=== PATIENT | male | born 1980 | race Two or more races ===

== ENCOUNTER 2022-10-19 12:59 | Emergency (ER) | payer MEDICARE, MEDICAID, SELFPAY ==
[2022-10-19 13:07] VITALS: BP 150/87; PULSE 70; RESP 22; TEMP 36.7; O2SAT 100; BMI 27.8
[2022-10-19 13:23] LABS: MANUAL DIFF FLAG NO
[2022-10-19 13:24] LABS: Basophils Absolute Auto 0.1 X10*3/uL (0.0-0.2); Basophils Percent Auto 0.6 % (0-2); Eosinophils Percent Auto 0.4 % (0-4); Hematocrit 36.9 % (42.0-52.0); Hemoglobin 12.5 g/dl (14.0-18.0); Imm Gran Abs Auto 0.02 X10*3/uL (0.00-0.03); Imm Gran Pct Auto 0.3 % (0.0-0.4); Lymphocytes Absolute Auto 1.3 X10*3/uL (1.2-4.9); Lymphocytes Percent Auto 16.9 % (20-40); Mean Corpuscular HGB Conc 33.9 g/dl (31.0-36.0); Mean Corpuscular Hemoglobin 29.9 pg (27.0-33.0); Mean Corpuscular Volume 88.3 fL (80.0-98.0); Mean Platelet Volume 9.7 fL (9.4-12.4); Monocytes Absolute Auto 0.3 X10*3/uL (0.1-1.2); Monocytes Percent Auto 4.2 % (2-11); Neutrophils Absolute Auto 6.2 x10*3/uL (2.0-8.3); Neutrophils Percent Auto 77.6 % (45-73); Platelet Count 290 X10*3/uL (160-400); Red Blood Count 4.18 X10*6/uL (4.60-5.80); Red Cell Distribution Width 13.2 % (11.0-16.0); White Blood Count 7.9 X10*3/uL (4.8-10.8)
[2022-10-19 14:00] LABS: COVID-19 Test Negative (Negative); IDNOW Serial# 16C4AD1C
--- NOTE | 2022-10-19 14:07 | ED.ABDPAIN ---
HPI - Abdominal Pain General Chief Complaint: Abdominal Pain Stated Complaint: vomiting abd pain Time Seen by Provider: 10/19/22 13:28 Source: patient Mode of arrival: ambulatory Limitations: no limitations History of Present Illness HPI narrative: this is a 41-year-old male past medical history significant for hypertension, diabetes, hyperlipidemia, neuropathy presenting to the emergency department with complaints of diffuse abdominal pain with nausea and vomiting since this morning. Patient reports that he has a history of pancreatitis and this feels similar. He tells me he has never drink alcohol, not a drinker. Denies drug use. Patient tells me he recently had an admission for pancreatitis about 2 weeks ago at his local hospital back home in [place]. Patient also has vague complaints of chest pain, intermittent in nature. Substernal dull. Denies shortness of breath, fevers, chills, flank pain, urinary changes, headache, vision changes and weakness. Tells me has not been able to tolerate anything by mouth since this morning. Related Data Allergies Allergy/AdvReac Type Severity Reaction Status Date / Time No Known Allergies Allergy Verified 10/19/22 13:07 Review of Systems Review of Systems Constitutional : No Weight loss, No Fever, No Chills, No Fatigue, No Malaise ENT/Mouth : No sore throat, No Rhinorrhea Eyes: No Eye Pain, No Swelling, No Redness Cardiovascular : No Chest Pain, No SOB, No Dyspnea on Exertion, No Orthopnea, No Edema, No Palpitations Respiratory : No Cough, No Sputum, No Wheezing Gastrointestinal : + Nausea, + Vomiting, No Diarrhea, No Constipation, + abdominal Pain, No Hematochezia, No Melena Genitourinary : No Dysuria, No Urinary Frequency, No Hematuria, Musculoskeletal : No joint pain, No Myalgias, No Joint Swelling Skin : No Skin Lesions, No rash Neuro : No Weakness, No Numbness, No Dizziness, No Headache Psych : No Anxiety/Panic, No Depression All other systems reviewed and are negative Yes all other systems are reviewed and are negative [facility] Past Medical History Attestation statement: The following information was validated with the patient. Source: old records reviewed and nursing notes reviewed Social History Social History Advance Directives: No Advance Directives Information Provided: No Physical Exam ED Vital Signs: Vital Signs - 24 hr 10/19/22 13:07 10/19/22 19:27 10/19/22 20:10 Temperature 98.0 F 99.5 F 99.2 F Pulse Rate 70 60 59 Respiratory Rate 22 H 22 H Blood Pressure 150/87 H 178/93 H 177/102 H Pulse Oximetry 100 99 98 Oxygen Delivery Method Room Air Room Air Room Air BMI result Body Mass Index 27.8 vss Appearance: Alert.? Oriented X3.? No acute distress.? Head: Normocephalic, atraumatic, no step-offs or deformities Eyes: Pupils equal, round and reactive to light.? ENT: Pharynx normal.? Neck: Normal inspection.? Neck supple.? CVS: Normal heart rate and rhythm.? Pulses normal.? Respiratory: No respiratory distress.? Breath sounds normal.? Abdomen: Soft and Diffusely tender abdomen , however no point tenderness with present bowel sounds throughout? Skin: Skin warm and dry.? Normal skin color.? Normal skin turgor.? Extremities: No lower extremity edema.? No calf ttp. 5/5 strength to bilateral upper and lower extremities Neuro: Oriented X 3.? No motor deficit.? No sensory deficit. CN 2-12 intact Course Reevaluation(s) Reevaluation #1: CBC within normal limits. chemistry with no acute finding requiring intervention. No anion gap, or electrolyte abnormalities, therefore low suspicion for DKA. Patient has no history of DKA. troponin slightly elevated 29.8 EKG nonischemic, patient not reporting chest pain therefore low suspicion for ACS. Second troponin pending Lipase 82. UA clean. Ethanol negative. COVID & Flu negative. I will add a drug of abuse screening patient with bizarre affect, throwing things in the room, yelling that he is in pain and needs something now, demanding pain medicine . Tells me still extremely nauseous and vomiting into the bag. Time: 14:30 Reevaluation #2: Patient positive for marijuana and cocaine, this may be cyclic vomiting. CT of the abdomen and pelvis with focal airspace opacities at lung base is, patient without upper respiratory symptoms low suspicion for pneumonia or pulmonary etiology. No CT evidence of any acute intra-abdominal and or intrapelvic pathology is. No evidence of acute pancreatitis. Pending repeat trop. I suspect that patient will be discharged home. He is resting comfortably sleeping with stable vitals. Time: 19:37 Reevaluation #3: Repeat trop not meeting delta criteria. Patient w/o chest pain. Patient's last blood pressure in accurate was taken when patient was vomiting. Another blood pressure will be obtained prior to discharge. At time of discharge patient not having nausea or vomiting, tolerating p.o. fluids. Educated patient on diagnosis and treatment plan, answered all question, patient verbalizes understanding. At this time patient will be discharged home, advised to return with new or worsening symptoms. Educated on worrisome signs and symptoms and when to return. At this time I feel comfortable discharge home. Time: 20:24 Medical Decision Making Medical Decision Making [facility] Narrative: 1350 41-year-old male presents with abdominal pain, chest pain, nausea & vomiting X1 day. Hx of pancreatitis Physical exam significant for diffusely tender abdomen with present bowel sounds throughout. Concerns for pancreatitis. Will rule out other intra-abdominal etiologies. Will also rule out electrolyte abnormalities, dehydration. Unlikley ACS and PE based off story. Patient PERC negative. Plan at this time laboratory studies, imaging. Lab Data Result Diagrams: 10/19/22 13:17 10/19/22 13:17 Labs: Lab Results 10/19/22 10/19/22 10/19/22 Range/Units 13:17 13:17 13:22 WBC 7.9 (4.8-10.8) X10*3/uL RBC 4.18 L (4.60-5.80) X10*6/uL Hgb 12.5 L (14.0-18.0) g/dl Hct 36.9 L (42.0-52.0) % MCV 88.3 (80.0-98.0) fL MCH 29.9 (27.0-33.0) pg MCHC 33.9 (31.0-36.0) g/dl RDW 13.2 (11.0-16.0) % Plt Count 290 (160-400) X10*3/uL MPV 9.7 (9.4-12.4) fL Immature Gran % (Auto) 0.3 (0.0-0.4) % Neut % (Auto) 77.6 H (45-73) % Lymph % (Auto) 16.9 L (20-40) % Pierce % (Auto) 4.2 (2-11) % Eos % (Auto) 0.4 (0-4) % Baso % (Auto) 0.6 (0-2) % Lymph # (Auto) 1.3 (1.2-4.9) X10*3/uL Pierce # (Auto) 0.3 (0.1-1.2) X10*3/uL Eos # (Auto) 0.0 (0.0-0.4) X10*3/uL Baso # (Auto) 0.1 (0.0-0.2) X10*3/uL Abs Immat Gran (auto) 0.02 (0.00-0.03) X10*3/uL Absolute Neuts (auto) 6.2 (2.0-8.3) x10*3/uL Absolute Nucleated RBC 0.000 (0.0-0.012) X10*3/uL Nucleated RBC % (auto) 0.0 (0.0-0.2) /100WBC Sodium 139 (135-145) mmol/L Potassium 4.4 (3.3-5.1) mmol/L Chloride 108 (96-108) mmol/L Carbon Dioxide 23 (22-29) mmol/L Anion Gap 12 (12-20) BUN 11 (9-16) mg/dL Creatinine 1.10 (0.5-1.4) mg/dL Estim Creat Clear Calc 108.5 Estimated GFR > 60 Random Glucose 185 H (60-115) mg/dL Calcium 10.1 (8.4-10.2) mg/dL Total Bilirubin 0.4 (0.0-1.0) mg/dL Direct Bilirubin 0.2 (0.0-0.5) mg/dL AST 20 (5-37) U/L ALT 20 (0-40) U/L Alkaline Phosphatase 84 (39-117) U/L Troponin I High Sens 29.8 (<3.5-35.0) ng/L Total Protein 7.2 (6.5-8.0) g/dL Albumin 4.4 (3.5-5.0) g/dL Triglycerides 97 mg/dL Lipase 82 H (8-78) U/L Urine Color Urine Appearance Urine pH (5.0-9.0) Ur Specific [place] (1.005-1.025) Urine Protein (Neg-Trace) mg/dL Urine Glucose (UA) (Negative) mg/dL Urine Ketones (Negative) mg/dL Urine Blood (Negative) Urine Nitrite (Negative) Ur Leukocyte Esterase (Negative) Urine Opiates Screen (Not Detect) Urine Fentanyl Screen (Not Detect) Ur Barbiturates Screen (Not Detect) Ur Phencyclidine Scrn (Not Detect) Ur Amphetamines Screen (Not Detect) U Benzodiazepines Scrn (Not Detect) Urine Cocaine Screen (Not Detect) U Marijuana (THC) Screen (Not Detect) Ethyl Alcohol < 10 mg/dL COVID-19 (SANDI) (Negative) COVID-19 Clin Com Influenza Type A (DESTINEE) (Negative) Influenza Type B (DESTINEE) (Negative) Influenza A & B Note 10/19/22 10/19/22 10/19/22 Range/Units 13:43 14:16 14:16 WBC (4.8-10.8) X10*3/uL RBC (4.60-5.80) X10*6/uL Hgb (14.0-18.0) g/dl Hct (42.0-52.0) % MCV (80.0-98.0) fL MCH (27.0-33.0) pg MCHC (31.0-36.0) g/dl RDW (11.0-16.0) % Plt Count (160-400) X10*3/uL MPV (9.4-12.4) fL Immature Gran % (Auto) (0.0-0.4) % Neut % (Auto) (45-73) % Lymph % (Auto) (20-40) % Pierce % (Auto) (2-11) % Eos % (Auto) (0-4) % Baso % (Auto) (0-2) % Lymph # (Auto) (1.2-4.9) X10*3/uL Pierce # (Auto) (0.1-1.2) X10*3/uL Eos # (Auto) (0.0-0.4) X10*3/uL Baso # (Auto) (0.0-0.2) X10*3/uL Abs Immat Gran (auto) (0.00-0.03) X10*3/uL Absolute Neuts (auto) (2.0-8.3) x10*3/uL Absolute Nucleated RBC (0.0-0.012) X10*3/uL Nucleated RBC % (auto) (0.0-0.2) /100WBC Sodium (135-145) mmol/L Potassium (3.3-5.1) mmol/L Chloride (96-108) mmol/L Carbon Dioxide (22-29) mmol/L Anion Gap (12-20) BUN (9-16) mg/dL Creatinine (0.5-1.4) mg/dL Estim Creat Clear Calc Estimated GFR Random Glucose (60-115) mg/dL Calcium (8.4-10.2) mg/dL Total Bilirubin (0.0-1.0) mg/dL Direct Bilirubin (0.0-0.5) mg/dL AST (5-37) U/L ALT (0-40) U/L Alkaline Phosphatase (39-117) U/L Troponin I High Sens (<3.5-35.0) ng/L Total Protein (6.5-8.0) g/dL Albumin (3.5-5.0) g/dL Triglycerides mg/dL Lipase (8-78) U/L Urine Color Yellow Urine Appearance Clear Urine pH 8.0 (5.0-9.0) Ur Specific [place] 1.020 (1.005-1.025) Urine Protein Negative (Neg-Trace) mg/dL Urine Glucose (UA) 100 H (Negative) mg/dL Urine Ketones Trace (Negative) mg/dL Urine Blood Negative (Negative) Urine Nitrite Negative (Negative) Ur Leukocyte Esterase Negative (Negative) Urine Opiates Screen Not Detected (Not Detect) Urine Fentanyl Screen Not Detected (Not Detect) Ur Barbiturates Screen Not Detected (Not Detect) Ur Phencyclidine Scrn Not Detected (Not Detect) Ur Amphetamines Screen Not Detected (Not Detect) U Benzodiazepines Scrn Not Detected (Not Detect) Urine Cocaine Screen POSITIVE H (Not Detect) U Marijuana (THC) Screen POSITIVE H (Not Detect) Ethyl Alcohol mg/dL COVID-19 (SANDI) Negative (Negative) COVID-19 Clin Com See Note Influenza Type A (DESTINEE) (Negative) Influenza Type B (DESTINEE) (Negative) Influenza A & B Note 10/19/22 10/19/22 Range/Units 16:21 19:42 WBC (4.8-10.8) X10*3/uL RBC (4.60-5.80) X10*6/uL Hgb (14.0-18.0) g/dl Hct (42.0-52.0) % MCV (80.0-98.0) fL MCH (27.0-33.0) pg MCHC (31.0-36.0) g/dl RDW (11.0-16.0) % Plt Count (160-400) X10*3/uL MPV (9.4-12.4) fL Immature Gran % (Auto) (0.0-0.4) % Neut % (Auto) (45-73) % Lymph % (Auto) (20-40) % Pierce % (Auto) (2-11) % Eos % (Auto) (0-4) % Baso % (Auto) (0-2) % Lymph # (Auto) (1.2-4.9) X10*3/uL Pierce # (Auto) (0.1-1.2) X10*3/uL Eos # (Auto) (0.0-0.4) X10*3/uL Baso # (Auto) (0.0-0.2) X10*3/uL Abs Immat Gran (auto) (0.00-0.03) X10*3/uL Absolute Neuts (auto) (2.0-8.3) x10*3/uL Absolute Nucleated RBC (0.0-0.012) X10*3/uL Nucleated RBC % (auto) (0.0-0.2) /100WBC Sodium (135-145) mmol/L Potassium (3.3-5.1) mmol/L Chloride (96-108) mmol/L Carbon Dioxide (22-29) mmol/L Anion Gap (12-20) BUN (9-16) mg/dL Creatinine (0.5-1.4) mg/dL Estim Creat Clear Calc Estimated GFR Random Glucose (60-115) mg/dL Calcium (8.4-10.2) mg/dL Total Bilirubin (0.0-1.0) mg/dL Direct Bilirubin (0.0-0.5) mg/dL AST (5-37) U/L ALT (0-40) U/L Alkaline Phosphatase (39-117) U/L Troponin I High Sens 34.5 (<3.5-35.0) ng/L Total Protein (6.5-8.0) g/dL Albumin (3.5-5.0) g/dL Triglycerides mg/dL Lipase (8-78) U/L Urine Color Urine Appearance Urine pH (5.0-9.0) Ur Specific [place] (1.005-1.025) Urine Protein (Neg-Trace) mg/dL Urine Glucose (UA) (Negative) mg/dL Urine Ketones (Negative) mg/dL Urine Blood (Negative) Urine Nitrite (Negative) Ur Leukocyte Esterase (Negative) Urine Opiates Screen (Not Detect) Urine Fentanyl Screen (Not Detect) Ur Barbiturates Screen (Not Detect) Ur Phencyclidine Scrn (Not Detect) Ur Amphetamines Screen (Not Detect) U Benzodiazepines Scrn (Not Detect) Urine Cocaine Screen (Not Detect) U Marijuana (THC) Screen (Not Detect) Ethyl Alcohol mg/dL COVID-19 (SANDI) (Negative) COVID-19 Clin Com Influenza Type A (DESTINEE) Negative (Negative) Influenza Type B (DESTINEE) Negative (Negative) Influenza A & B Note See Note Medications Administered Discontinued Medications Generic Name Dose Route Start Last Admin Trade Name Freq PRN Reason Stop Dose Admin Al Hydroxide/Mg Hydroxide 30 ml 10/19/22 18:07 10/19/22 18:56 Magnesium Hydrox/Alum Hydrox 30 Ml Oral.Susp PO 10/19/22 18:08 30 ml ONCE ONE Administration Belladonna Alkaloids/Phenobarbital 10 ml 10/19/22 18:07 10/19/22 18:57 Phenobarb/Hyoscy/Atropine/Scop 10 Ml Elixir PO 10/19/22 18:08 10 ml ONCE ONE Administration Sodium Chloride 1,000 mls @ 999 mls/hr 10/19/22 14:30 10/19/22 16:48 Ns IV 10/19/22 15:30 Infused .Q1H1M LUIS Infusion Iohexol 100 ml 10/19/22 15:10 10/19/22 15:11 Iohexol 350 Mg/Ml 100 Ml Infus..Btl IV 10/19/22 15:11 85 ml ONCE ONE Administration Morphine Sulfate 4 mg 10/19/22 15:54 10/19/22 16:48 Morphine Sulfate 4 Mg/Ml Cartridge IVPUSH 10/19/22 15:55 4 mg ONCE ONE Administration Protocol Morphine Sulfate 4 mg 10/19/22 18:49 10/19/22 18:57 Morphine Sulfate 4 Mg/Ml Cartridge IVPUSH 10/19/22 18:50 4 mg ONCE ONE Administration Protocol Critical Care Time Critical Care Time Critical Care Time: No Discharge Plan Discharge Clinical Impression: Abdominal pain, Nausea & vomiting, Chest pain not due to acute coronary syndrome Patient Disposition: Home, Self-Care Instructions: Acute Nausea and Vomiting (ED), Abdominal Pain (ED) Additional Instructions: Take your medications as prescribed. If you were prescribed antibiotics today, it is important that you take your medication to their entirety, do not skip any doses, do not finish them early. Follow-up with your primary care provider this week. Follow-up with gastroenterology. Follow-up with cardiology of made Return to the emergency department with new or worsening symptoms. Such as fevers, chills, chest pain, shortness of breath, nausea, vomiting, dizziness, headache, vision changes, lethargy In case of emergency call 911 CT/CT abdomen pelvis w IV con IMPRESSION: Nonspecific focal airspace opacities are noted at both lung bases (right greater than left), likely represent hypoventilatory, atelectatic changes. ? No CT evidence of any acute intra-abdominal and/or intrapelvic pathology. Specifically, no CT evidence of any acute pancreatitis is present. The etiology for abdominal pain is not evident on these images. ? Fleischner guidelines were followed. [place] [facility] [place]Provider Group] - 1 week Physician,None [Primary Care Provider] - 2 days Stand Alone Forms: Work/School Release
[2022-10-19 14:19] LABS: Alanine Aminotransferase 20 U/L (0-40); Albumin Level 4.4 g/dL (3.5-5.0); Alkaline Phosphatase 84 U/L (39-117); Anion Gap 12 (12-20); Aspartate Amino Transferase 20 U/L (5-37); Bilirubin Direct 0.2 mg/dL (0.0-0.5); Bilirubin Total 0.4 mg/dL (0.0-1.0); Blood Urea Nitrogen 11 mg/dL (9-16); Calcium 10.1 mg/dL (8.4-10.2); Carbon Dioxide 23 mmol/L (22-29); Chloride 108 mmol/L (96-108); Creatinine Clr Calc Pharmacy 108.5; Estimated Glomerular Filt Rate > 60; Ethanol < 10 mg/dL; Glucose Random 185 mg/dL (60-115); Lipase 82 U/L (8-78); Potassium 4.4 mmol/L (3.3-5.1); Sodium 139 mmol/L (135-145); Total Protein 7.2 g/dL (6.5-8.0)
[2022-10-19 14:24] LABS: Appearance Urine Clear; Color Urine Yellow; Glucose Urine UA 100 mg/dL (Negative); Leukocyte Esterase Urine Negative (Negative); Nitrite Urine Negative (Negative); Urine Blood Negative (Negative); Urine Ketones Trace mg/dL (Negative); Urine Protein Negative (Neg-Trace)
[2022-10-19 14:57] LABS: Triglycerides 97 mg/dL
[2022-10-19 16:46] LABS: IDNOW Serial# 16C4AD1C; Influenza A Negative (Negative); Influenza B2 Negative (Negative)
--- NOTE | 2022-10-19 18:05 | ECG_ITS ---
Test Reason : ABDOMINAL PAIN Blood Pressure : / mmHG Vent. Rate : 063 BPM Atrial Rate : 067 BPM P-R Int : 148 ms QRS Dur : 082 ms QT Int : 406 ms P-R-T Axes : 051 034 015 degrees QTc Int : 415 ms Normal sinus rhythm with sinus arrhythmia Normal ECG No previous ECGs available Referred By: Fallon Garcia Electronically Signed By:Sachin Evans
--- NOTE | 2022-10-19 18:42 | PC.NURSE ---
pt and family member screaming out, banging call alan against bed rails and throwing things in room. provider and staff at bedside to attempt to deescalate.
[2022-10-19 18:51] LABS: Troponin-I High Sensitivity 29.8 ng/L (<3.5-35.0)
--- NOTE | 2022-10-19 19:00 | PC.NURSE ---
Pt crying out in pain, slamming call alan and ripping at curtain. Medicated per MAR for pain.
[2022-10-19 19:20] LABS: Amphetamine Screen Urine Not Detected (Not Detect); Barbiturates, Urine Not Detected (Not Detect); Benzodiazepines Screen Urine Not Detected (Not Detect); Cannabinoid Screen Urine POSITIVE (Not Detect); Cocaine Screen Urine POSITIVE (Not Detect); Fentanyl, urine Not Detected (Not Detect); Opiate Screen Urine Not Detected (Not Detect); Phencyclidine Screen Urine Not Detected (Not Detect)
--- NOTE | 2022-10-19 19:21 | PC.NURSE ---
Assumed care of patient. Alert and oriented. No apparent distress.
[2022-10-19 19:27] VITALS: BP 178/93; PULSE 60; RESP 22; TEMP 37.5; O2SAT 99
--- NOTE | 2022-10-19 19:30 | PC.NURSE ---
Patient resting quietly with mother at bedside. BP at 178/93. Provider notified. Will continue to monitor.
[2022-10-19 20:10] VITALS: BP 177/102; PULSE 59; TEMP 37.3; O2SAT 98
[2022-10-19 20:16] LABS: Troponin-I High Sensitivity 34.5 ng/L (<3.5-35.0)
--- NOTE | 2022-10-19 20:38 | PC.NURSE ---
Patient is alert and oriented. Discharge instructions given and explained. Patient ambulates safely and independently. IV cath tip intact upon removal.
== END 2022-10-19 20:36 | disposition home or self-care (01) ==
PROVIDERS: Nurse Practitioner Family; Physician Assistant; Emergency Provider Internal Medicine
DX: R11.2 Nausea with vomiting, unspecified (principal); R10.9 Unspecified abdominal pain; R07.89 Other chest pain; Z20.822 Contact with and (suspected) exposure to COVID-19; E11.9 Type 2 diabetes mellitus without complications; I10 Essential (primary) hypertension; E78.5 Hyperlipidemia, unspecified
CPT/HCPCS: 36415; 74177; 80053; 80307; 81003; 82077; 82248; 83690; 84478; 84484; 85025; 87502; 87635; 93005; 96361; 96374; 96376; 99284; 99285; J2270; Q9967